=== PATIENT | female | born 1945 | race Caucasian/White ===

== ENCOUNTER → 2016-07-05 | Outpatient (CLI) | payer MEDICARE, BC ==
[~2016-07-05] MED LIST: ASC500 PO; ASPI325T32 PO; FER325 PO; HYDR-3498 PO; TRAM50TA2 PO
--- NOTE | 2016-07-06 09:44 | RADRPT ---
PROCEDURE: XR right kidney. CLINICAL INDICATION: Knee pain TECHNIQUE: AP weightbearing, PA weightbearing, lateral weightbearing and sunrise views are availab le for review. COMPARISON: None available FINDINGS: Horizontal single screw in the proximal tibia. There is moderate osteoarthrosis involving the medial tibial femoral compartment and mild osteoarthr osis involving the lateral tibial femoral compartment and the patellofemoral compartment. This is as sociated with joint space narrowing and minimal osteophytosis. There is chondrocalcinosis with media l and lateral meniscal calcification. There is diffuse osteopenia. No fractures are identified. No osseous lesions are identified. The soft tissues are unremarkable. IMPRESSION: Diffuse osteopenia Moderate osteoarthrosis involving the medial tibial femoral compartment and mild osteoarthrosis invo lving the lateral tibial femoral compartment and the patellofemoral compartment. Chondrocalcinosis RPTAT: [facility] .Clyde Solorzano MD, Date Time Electronically viewed and signed by .Clyde Solorzano MD, on 07/06/2016 09:43 .B/
== END | disposition home or self-care (01) ==
LOC: HKI 14:30
PROVIDERS: ATTEND Orthopaedic Surgery
DX: M25.561 Pain in right knee (principal); W01.0XXD Fall on same level from slipping, tripping and stumbling without subsequent striking against object, subsequent encounter; Z96.641 Presence of right artificial hip joint
CPT/HCPCS: 73564; G0463

== ENCOUNTER → 2016-07-26 | Outpatient (CLI) | payer MEDICARE, BC ==
--- NOTE | 2016-07-26 10:02 | RADRPT ---
PROCEDURE: XR right knee. CLINICAL INDICATION: Knee pain TECHNIQUE: AP weightbearing, PA weightbearing, lateral weightbearing and sunrise views are availab le for review. COMPARISON: 07/06/2016 FINDINGS: Horizontal single screw in the proximal tibia. There is moderate osteoarthrosis involving the medial tibial femoral compartment and mild osteoarthr osis involving the lateral tibial femoral compartment and the patellofemoral compartment. This is as sociated with joint space narrowing and minimal osteophytosis. There is chondrocalcinosis with media l and lateral meniscal calcification. There is diffuse osteopenia. No fractures are identified. 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 The soft tissues are unremark able. IMPRESSION: Diffuse osteopenia Moderate osteoarthrosis involving the medial tibial femoral compartment and mild osteoarthrosis invo lving the lateral tibial femoral compartment and the patellofemoral compartment. Chondrocalcinosis RPTAT: [facility] .Clyde Solorzano MD, MD Date Time Electronically viewed and signed by .Clyde Solorzano MD, on 07/26/2016 10:01 .B/
== END | disposition home or self-care (01) ==
LOC: HKI 09:34
PROVIDERS: ATTEND Orthopaedic Surgery
DX: S80.01XD Contusion of right knee, subsequent encounter (principal); W01.0XXD Fall on same level from slipping, tripping and stumbling without subsequent striking against object, subsequent encounter; M25.561 Pain in right knee; Z96.641 Presence of right artificial hip joint
CPT/HCPCS: 73564; G0463

== ENCOUNTER → 2016-11-15 | Outpatient (CLI) | payer MEDICARE, BC ==
--- NOTE | 2016-11-15 16:13 | RADRPT ---
PROCEDURE: XR Right hip and pelvis. CLINICAL INDICATION: Right hip pain. Pelvic pain. Postop. TECHNIQUE: Three views. Frontal pelvis. Frontal and lateral right hip. COMPARISON: 11/14/2015. FINDINGS: There is no fracture or dislocation. The soft tissues are normal. There is a right hip total arthroplasty which appears satisfactory. The left hip is grossly normal. There is no lytic or blastic lesion. The upper pelvis is not completely included on the image. IMPRESSION: 1. Satisfactory postoperative appearance of the right hip. 2. Grossly normal appearance of the left hip. RPTAT: QQ .Asim Johnson MD, Date Time Electronically viewed and signed by .Asim Johnson MD, on 11/15/2016 16:13 .R/
== END | disposition home or self-care (01) ==
LOC: HKI 09:42
PROVIDERS: ATTEND Orthopaedic Surgery
DX: Z47.89 Encounter for other orthopedic aftercare (principal); Z96.641 Presence of right artificial hip joint
CPT/HCPCS: 73502; G0463